=== PATIENT | male | born 1955 | race Caucasian/White ===

== ENCOUNTER 2023-05-21 14:32 | Inpatient (IN) | payer OTHER, MEDICARE ==
[~2023-05-21 14:32] MED LIST: Iopamidol-370 76% 500 ML MDV (1 ML CHARGE) ONE
[2023-05-21 14:55] LABS: #Basophils 0.1 thou/uL (0.0-0.2); #Eosinphils 0.1 thou/uL (0.0-0.7); #Monocytes 1.5 thou/uL (0.11-0.59); #Neutrophils 13.7 thou/uL (1.40-6.50); %Basophils 0.5 % (0.0-1.0); %Eosinophils 0.7 % (0.0-10.0); %Monocytes 8.3 % (0.0-10.0); %Neutrophils 77.4 % (42.0-75.0); Hematocrit 45.2 % (42.0-52.0); Hemoglobin 15.6 g/dL (14.0-18.0); Mean Corpuscular HGB CONC 34.5 g/dL (32.0-36.0); Mean Corpuscular Hemoglobin 32.4 pg (27.0-31.0); Mean Corpuscular Volume 93.8 fl (78.0-98.0); Mean Platelet Volume 9.5 fL (7.4-10.4); Platelet Count 194 10x3/uL (130-400); Red Blood Cell (RBC) Count 4.82 mill/uL (4.70-6.10); White Blood Cell (WBC) Count 17.7 10x3/uL (4.8-10.8)
[2023-05-21] MEDS ORDERED: Ketamine 50 MG/ML (10ML VIAL) ONE (15:06)
[2023-05-21 15:08] LABS: INR-International Normal Ratio 1.3; PTT 28.8 sec (22.9-36.1); Prothrombin Time 16.9 sec (12.0-14.7)
[2023-05-21 15:17] LABS: ALT (SGPT) 44 U/L (8-55); AST (SGOT) 65 U/L (5-34); Alkaline Phosphatase 72 U/L (40-110); Anion Gap 15 mmol/L (10-20); BUN (Urea Nitrogen) 22 mg/dL (8.4-25.7); Bilirubin, Total 1.5 mg/dL (0.2-1.2); Calc. Creatinine Clearance 0 mL/min (70-130); Calcium 9.1 mg/dL (7.8-10.44); Carbon Dioxide 23 mmol/L (23-31); Chloride 106 mmol/L (98-107); Estimated GFR 42; Globulin 3.6 g/dL (2.4-3.5); Glucose 182 mg/dL (80-115); Lipase 108 U/L (8-78); Potassium 3.7 mmol/L (3.5-5.1); Protein, Total 7.6 g/dL (5.8-8.1); Sodium 140 mmol/L (136-145)
[2023-05-21] MEDS ORDERED: Morphine 4 MG/ML VIAL ONE (16:33)
[2023-05-21] MEDS ORDERED: Ipratropium/Albuterol 3 ML NEB NEB PRN (17:03)
[2023-05-21] MEDS ORDERED: hydrALAZINE 20 MG/ML VIAL SLOW IVP PRN (17:03)
[2023-05-21] MEDS ORDERED: Ondansetron PF 4 MG/2 ML Vial IVP PRN (17:03)
[2023-05-21] MEDS ORDERED: traMADol HCl 50 MG TAB PO PRN (17:07)
[2023-05-21] MEDS ORDERED: HYDROmorphone 0.5 MG/0.5 ML SYRINGE ONE (17:33)
[2023-05-21] MEDS ORDERED: traMADol HCl 50 MG TAB PO SCH (18:00)
[2023-05-21] MEDS ORDERED: Acetaminophen 500 MG TAB PO SCH (18:00)
[2023-05-21] MEDS ORDERED: Dextrose 50% Abboject 50 ML SYRINGE SLOW IVP PRN ×2 (18:29→22:18)
[2023-05-21] MEDS ORDERED: Glucagon 1 MG/ML KIT IM PRN ×2 (18:29→22:18)
[2023-05-21] MEDS ORDERED: Dextrose 5% in Water 1,000 ML IV PRN ×2 (18:29→22:18)
[2023-05-21] MEDS ORDERED: hydrALAZINE 25 MG TAB PO PRN (18:30)
[2023-05-21] MEDS ORDERED: Acetaminophen 650 MG/20.3 ML UDCUP PO SCH (18:45)
[2023-05-21] MEDS ORDERED: Acetaminophen/Codeine 30-300mg Tablet PO SCH (18:45)
[2023-05-21 19:01] LABS: Bacteria/HPF None Seen HPF (None Seen); Bilirubin Negative (Negative); Blood, Urine 3+ (Negative); CAUTI Indications for Culture Dysuria,urgency,freq; Clarity Clear (Clear); Glucose, Urine (Dipstick) Greater than 1000 mg/dL (Negative); Ketone, Urine Negative (Negative); Leukocyte Negative Leu/uL (Negative); Nitrite Negative (Negative); Protein, Urine (Dipstick) 20 mg/dL (Neg-Trace); RBC/HPF 0-3 HPF (0-3); Squamous Epithelial 0-3 HPF (0-3); Urobilinogen Normal mg/dL (Less than 2); WBC/HPF 0-3 HPF (0-3)
[2023-05-21 19:02] LABS: Specific Gravity, Urine 1.053 (1.002-1.036)
[2023-05-21 19:04] LABS: Urine Culture Reflex No No
[2023-05-21 19:59] VITALS: BMI 38.8
[2023-05-21] MEDS: Gabapentin 100 MG CAP PO SCH (20:46)
[2023-05-21] MEDS: Famotidine/PF 20 mg/2ml Vial SLOW IVP SCH (20:46)
[2023-05-21] MEDS: Sodium Chloride 0.9% 1,000 ML IV SCH (20:46)
[2023-05-21] MEDS: Atorvastatin Calcium 40 MG TAB PO SCH (20:46)
[2023-05-21] MEDS: Morphine 2 MG/ML VIAL SLOW IVP PRN (20:47)
[2023-05-21] MEDS ORDERED: TETANUS, DIPHTHERIA TOX,ADULT (TDVAX) 0.5 ML VIAL IM ONE (22:18)
[2023-05-21] MEDS: Insulin Regular 300 UNITS/3 ML VIAL SC PRN (22:35)
[2023-05-22] MEDS: Acetaminophen/Codeine 30-300mg Tablet PO SCH ×2 (00:25→06:21)
[2023-05-22] MEDS: Acetaminophen 650 MG/20.3 ML UDCUP PO SCH ×2 (00:26→06:21)
[2023-05-22] MEDS: Sodium Chloride 0.9% 1,000 ML IV SCH ×3 (05:15→16:57)
[2023-05-22 05:53] LABS: #Basophils 0.1 thou/uL (0.0-0.2); #Monocytes 1.9 thou/uL (0.11-0.59); #Neutrophils 11.4 thou/uL (1.40-6.50); %Basophils 0.3 % (0.0-1.0); %Lymphocytes 8.3 % (21.0-51.0); %Monocytes 13.2 % (0.0-10.0); %Neutrophils 77.8 % (42.0-75.0); Hematocrit 40.7 % (42.0-52.0); Hemoglobin 13.9 g/dL (14.0-18.0); Mean Corpuscular HGB CONC 34.2 g/dL (32.0-36.0); Mean Corpuscular Hemoglobin 32.3 pg (27.0-31.0); Mean Corpuscular Volume 94.7 fl (78.0-98.0); Mean Platelet Volume 9.8 fL (7.4-10.4); Platelet Count 182 10x3/uL (130-400); RBC Distribution Width 12.5 % (11.5-14.5); White Blood Cell (WBC) Count 14.7 10x3/uL (4.8-10.8)
[2023-05-22 06:12] LABS: Anion Gap 15 mmol/L (10-20); BUN (Urea Nitrogen) 26 mg/dL (8.4-25.7); Calc. Creatinine Clearance 66 mL/min (70-130); Calcium 8.8 mg/dL (7.8-10.44); Carbon Dioxide 22 mmol/L (23-31); Chloride 103 mmol/L (98-107); Estimated GFR 40; Glucose 243 mg/dL (80-115); Sodium 136 mmol/L (136-145)
[2023-05-22] MEDS: Insulin Regular 300 UNITS/3 ML VIAL SC PRN ×4 (06:22→21:51)
[2023-05-22] MEDS: Gabapentin 100 MG CAP PO SCH ×3 (08:10→20:04)
[2023-05-22] MEDS: Morphine 2 MG/ML VIAL SLOW IVP PRN ×3 (08:10→21:51)
[2023-05-22] MEDS: Aspirin 325 mg Enteric Coated Tablet PO SCH (08:11)
[2023-05-22] MEDS: Montelukast Sodium 10 mg Tablet PO SCH (08:11)
[2023-05-22] MEDS: Acetaminophen/Codeine 30-300mg Tablet PO PRN ×4 (10:54→23:53)
[2023-05-22] MEDS ORDERED: Cyclobenzaprine 10 MG TAB PO PRN (12:38)
[2023-05-22] MEDS: Atorvastatin Calcium 40 MG TAB PO SCH (20:04)
[2023-05-22] MEDS: Famotidine/PF 20 mg/2ml Vial SLOW IVP SCH (20:06)
[2023-05-23] MEDS: Sodium Chloride 0.9% 1,000 ML IV SCH (02:56)
[2023-05-23] MEDS: Acetaminophen/Codeine 30-300mg Tablet PO PRN ×3 (04:44→20:15)
[2023-05-23] MEDS: Insulin Regular 300 UNITS/3 ML VIAL SC PRN ×3 (06:01→21:47)
[2023-05-23] MEDS ORDERED: CEFAZOLIN 2 GM in Sodium Chloride 0.9% 100 ML IVPB SCH (08:30)
[2023-05-23] MEDS: Montelukast Sodium 10 mg Tablet PO SCH (09:58)
[2023-05-23] MEDS: Aspirin 325 mg Enteric Coated Tablet PO SCH (09:58)
[2023-05-23] MEDS: Gabapentin 100 MG CAP PO SCH ×3 (09:59→20:14)
[2023-05-23] MEDS: Atorvastatin Calcium 40 MG TAB PO SCH (20:13)
[2023-05-23] MEDS: Famotidine/PF 20 mg/2ml Vial SLOW IVP SCH (20:15)
[2023-05-24] MEDS ORDERED: Lorazepam 2 MG/ML VIAL SLOW IVP SCH ×2 (00:45→07:30)
[2023-05-24 07:10] LABS: #Basophils 0.1 thou/uL (0.0-0.2); #Eosinphils 0.2 thou/uL (0.0-0.7); #Monocytes 1.3 thou/uL (0.11-0.59); #Neutrophils 9.1 thou/uL (1.40-6.50); %Basophils 0.5 % (0.0-1.0); %Eosinophils 1.5 % (0.0-10.0); %Lymphocytes 11.2 % (21.0-51.0); %Monocytes 10.8 % (0.0-10.0); %Neutrophils 75.4 % (42.0-75.0); Hematocrit 29.6 % (42.0-52.0); Hemoglobin 9.8 g/dL (14.0-18.0); Mean Corpuscular HGB CONC 33.1 g/dL (32.0-36.0); Mean Corpuscular Hemoglobin 32.6 pg (27.0-31.0); Mean Corpuscular Volume 98.3 fl (78.0-98.0); Mean Platelet Volume 9.7 fL (7.4-10.4); Platelet Count 123 10x3/uL (130-400); RBC Distribution Width 12.8 % (11.5-14.5); Red Blood Cell (RBC) Count 3.01 mill/uL (4.70-6.10); White Blood Cell (WBC) Count 12.1 10x3/uL (4.8-10.8)
[2023-05-24 07:34] LABS: Anion Gap 12 mmol/L (10-20); BUN (Urea Nitrogen) 49 mg/dL (8.4-25.7); Calc. Creatinine Clearance 34 mL/min (70-130); Calcium 7.8 mg/dL (7.8-10.44); Carbon Dioxide 22 mmol/L (23-31); Chloride 103 mmol/L (98-107); Estimated GFR 18; Glucose 202 mg/dL (80-115); Potassium 4.1 mmol/L (3.5-5.1); Sodium 133 mmol/L (136-145)
[2023-05-24] MEDS ORDERED: Thrombin 5000 UNITS/5 ML VIAL ONE ×2 (09:01→12:06)
[2023-05-24] MEDS ORDERED: EPINEPHrine 1 MG/ML AMP ONE (09:01)
[2023-05-24] MEDS ORDERED: Bupivacaine PF 0.5% 30 ML VIAL ONE (09:01)
[2023-05-24] MEDS ORDERED: CEFAZOLIN 2 GM VIAL ONE (09:36)
[2023-05-24] MEDS ORDERED: Sodium Chloride 0.9% 100 ML ONE (09:36)
[2023-05-24] MEDS ORDERED: Lidocaine 1% PF 5 ML VIAL ONE (09:50)
[2023-05-24] MEDS ORDERED: PHENYLEPHRINE-NS 100 MCG/ML 10 ML SYRINGE ONE (09:50)
[2023-05-24] MEDS ORDERED: Vecuronium 10 MG VIAL ONE (09:50)
[2023-05-24] MEDS ORDERED: Rocuronium Bromide 10 MG/ML (10ML VIAL) ONE (09:50)
[2023-05-24] MEDS ORDERED: PROPOFOL 200 MG/20 ML VIAL ONE (09:50)
[2023-05-24] MEDS ORDERED: Phenylephrine 10 MG/ML VIAL ONE (10:14)
[2023-05-24] MEDS: Aspirin 325 mg Enteric Coated Tablet PO SCH (11:15)
[2023-05-24] MEDS: Gabapentin 100 MG CAP PO SCH ×3 (11:15→21:45)
[2023-05-24] MEDS: Montelukast Sodium 10 mg Tablet PO SCH (11:16)
[2023-05-24] MEDS ORDERED: Rocuronium Bromide 50 MG/5 ML VIAL ONE (11:33)
[2023-05-24] MEDS ORDERED: Norepinephrine 4 MG/4 ML VIAL ONE (11:46)
[2023-05-24] MEDS ORDERED: Albumin 5% 500 ML ONE (12:08)
[2023-05-24] MEDS ORDERED: Aminocaproic Acid 5 GM in Sodium Chloride 0.9% 250 ML 250 ML IV SCH (14:30)
[2023-05-24] MEDS ORDERED: Propofol 1,000 MG/100 ML VIAL IV ONE (14:32)
[2023-05-24] MEDS ORDERED: NOREPINEPHRINE 8 MG/250 ML-D5W 250 ML ONE (14:34)
[2023-05-24] MEDS ORDERED: Midazolam HCl 2 mg/2 ml Vial IVP SCH (15:00)
[2023-05-24] MEDS ORDERED: FENTANYL 500 MCG/10 ML VIAL 2,000 MCG in Sodium Chloride 0.9% 60 ML IV PRN (15:26)
[2023-05-24 15:29] LABS: #Eosinphils 0.1 thou/uL (0.0-0.7); #Monocytes 0.9 thou/uL (0.11-0.59); #Neutrophils 7.5 thou/uL (1.40-6.50); %Basophils 0.4 % (0.0-1.0); %Eosinophils 1.2 % (0.0-10.0); %Lymphocytes 10.3 % (21.0-51.0); %Neutrophils 78.3 % (42.0-75.0); Hematocrit 28.4 % (42.0-52.0); Hemoglobin 9.3 g/dL (14.0-18.0); Mean Corpuscular HGB CONC 32.7 g/dL (32.0-36.0); Mean Corpuscular Hemoglobin 31.8 pg (27.0-31.0); Mean Corpuscular Volume 97.3 fl (78.0-98.0); Mean Platelet Volume 9.4 fL (7.4-10.4); Platelet Count 127 10x3/uL (130-400); RBC Distribution Width 13.3 % (11.5-14.5); Red Blood Cell (RBC) Count 2.92 mill/uL (4.70-6.10); White Blood Cell (WBC) Count 9.6 10x3/uL (4.8-10.8)
[2023-05-24] MEDS ORDERED: Dexmedetomidine In 0.9 % NaCl 100 ML IVPB SCH (15:30)
[2023-05-24] MEDS ORDERED: Sodium Chloride 0.9% 1,000 ML IV SCH (15:30)
[2023-05-24 15:43] LABS: INR-International Normal Ratio 1.4; PTT 33.1 sec (22.9-36.1); Prothrombin Time 17.5 sec (12.0-14.7)
[2023-05-24] MEDS ORDERED: Fentanyl CADD 100 ML ONE (15:57)
[2023-05-24] MEDS ORDERED: Fentanyl BOLUS 250 ML IVPB PRN (16:00)
[2023-05-24] MEDS: Fentanyl CADD 100 ML IV SCH (16:02)
[2023-05-24] MEDS ORDERED: Morphine 2 MG/ML VIAL SLOW IVP PRN (16:15)
[2023-05-24] MEDS ORDERED: Lorazepam 2 MG/ML VIAL SLOW IVP PRN (16:15)
[2023-05-24] MEDS ORDERED: DISCONTINUE PREVIOUS NARCOTIC PAIN MEDICATIONS AND BENZODIAZEPINES FS SCH (16:15)
[2023-05-24 17:20] LABS: #Basophils 0.1 thou/uL (0.0-0.2); #Eosinphils 0.1 thou/uL (0.0-0.7); #Neutrophils 7.9 thou/uL (1.40-6.50); %Basophils 0.5 % (0.0-1.0); %Eosinophils 0.9 % (0.0-10.0); %Lymphocytes 10.1 % (21.0-51.0); %Monocytes 10.2 % (0.0-10.0); %Neutrophils 77.5 % (42.0-75.0); Hematocrit 29.7 % (42.0-52.0); Hemoglobin 9.7 g/dL (14.0-18.0); Mean Corpuscular HGB CONC 32.7 g/dL (32.0-36.0); Mean Corpuscular Hemoglobin 31.7 pg (27.0-31.0); Mean Corpuscular Volume 97.1 fl (78.0-98.0); Mean Platelet Volume 9.7 fL (7.4-10.4); Platelet Count 133 10x3/uL (130-400); RBC Distribution Width 13.5 % (11.5-14.5); Red Blood Cell (RBC) Count 3.06 mill/uL (4.70-6.10); White Blood Cell (WBC) Count 10.2 10x3/uL (4.8-10.8)
[2023-05-24 17:38] LABS: Anion Gap 15 mmol/L (10-20); BUN (Urea Nitrogen) 46 mg/dL (8.4-25.7); Calc. Creatinine Clearance 40 mL/min (70-130); Calcium 7.9 mg/dL (7.8-10.44); Carbon Dioxide 16 mmol/L (23-31); Chloride 108 mmol/L (98-107); Estimated GFR 22; Glucose 202 mg/dL (80-115); Potassium 4.2 mmol/L (3.5-5.1); Sodium 135 mmol/L (136-145)
[2023-05-24] MEDS: CEFAZOLIN 2 GM in Sodium Chloride 0.9% 100 ML IVPB SCH (17:55)
[2023-05-24] MEDS: Dexmedetomidine 400 MCG, Admixture Fee 1 EACH in Sodium Chloride 0.9% 96 ML IVPB SCH (19:38)
[2023-05-24] MEDS: Atorvastatin Calcium 40 MG TAB PO SCH (21:45)
[2023-05-24] MEDS: Famotidine/PF 20 mg/2ml Vial SLOW IVP SCH (21:46)
[2023-05-24] MEDS ORDERED: NOREPINEPHRINE 8 MG/250 ML-D5W 250 ML IVPB SCH (22:15)
[2023-05-24] MEDS: Insulin Regular 300 UNITS/3 ML VIAL SC PRN (23:49)
[2023-05-25] MEDS: Sodium Chloride 0.9% 1,000 ML IV SCH ×2 (00:11→05:32)
[2023-05-25] MEDS: CEFAZOLIN 2 GM in Sodium Chloride 0.9% 100 ML IVPB SCH ×3 (02:41→17:35)
[2023-05-25 04:13] LABS: #Monocytes 0.9 thou/uL (0.11-0.59); #Neutrophils 5.9 thou/uL (1.40-6.50); %Basophils 0.3 % (0.0-1.0); %Eosinophils 0.3 % (0.0-10.0); %Lymphocytes 10.5 % (21.0-51.0); %Monocytes 11.1 % (0.0-10.0); %Neutrophils 77.3 % (42.0-75.0); Hemoglobin 7.9 g/dL (14.0-18.0); Mean Corpuscular HGB CONC 32.9 g/dL (32.0-36.0); Mean Corpuscular Hemoglobin 32.1 pg (27.0-31.0); Mean Corpuscular Volume 97.6 fl (78.0-98.0); Mean Platelet Volume 10.1 fL (7.4-10.4); RBC Distribution Width 13.3 % (11.5-14.5); Red Blood Cell (RBC) Count 2.46 mill/uL (4.70-6.10); White Blood Cell (WBC) Count 7.7 10x3/uL (4.8-10.8)
[2023-05-25 04:25] LABS: PTT 26.5 sec (22.9-36.1)
[2023-05-25 04:27] LABS: Platelet Count 114 10x3/uL (130-400)
[2023-05-25 04:35] LABS: Anion Gap 13 mmol/L (10-20); BUN (Urea Nitrogen) 47 mg/dL (8.4-25.7); Calc. Creatinine Clearance 49 mL/min (70-130); Calcium 7.7 mg/dL (7.8-10.44); Carbon Dioxide 20 mmol/L (23-31); Chloride 109 mmol/L (98-107); Estimated GFR 28; Glucose 188 mg/dL (80-115); Potassium 4.1 mmol/L (3.5-5.1); Sodium 138 mmol/L (136-145)
[2023-05-25 04:36] LABS: INR-International Normal Ratio 1.5; Prothrombin Time 18.8 sec (12.0-14.7)
[2023-05-25] MEDS: Acetaminophen 650 MG/20.3 ML UDCUP PO PRN (05:21)
[2023-05-25 07:28] LABS: Actual Bicarbonate (HCO3a) 22.4 mEq/L (22-28); Base Excess (BEa) -2.7 mEq/L (-2.0 to +3.0); CO2 Tension 40.1 mmHg (35.0-45.0); Calcium, Ionized (arterial) 1.07 mmol/L (1.12-1.30); Carboxyhemoglobin (COHb) 0.9 gm% (0.0-3.0); Hematocrit-ABG 24 % (42.0-52.0); Hemoglobin (Hb) 8.1 g/dL (14.0-18.0); O2 Tension (PaO2), arterial 93.5 mmHg (> 80.0); Potassium - ABG Lab 3.83 mmol/L (3.70-5.30); pH, Arterial 7.365 (7.35-7.45)
[2023-05-25 07:30] LABS: ALV-art Gradient 141.575 mmHg (0-20); Puncture Site RRA
[2023-05-25] MEDS: Gabapentin 100 MG CAP PO SCH ×3 (09:31→20:37)
[2023-05-25] MEDS: Montelukast Sodium 10 mg Tablet PO SCH (09:32)
[2023-05-25] MEDS: Metoprolol Tartrate 25 MG TAB PO SCH ×2 (09:32→20:37)
[2023-05-25] MEDS: Dexmedetomidine 400 MCG, Admixture Fee 1 EACH in Sodium Chloride 0.9% 96 ML IVPB SCH (09:54)
[2023-05-25] MEDS ORDERED: Fentanyl CADD 100 ML ONE (10:34)
[2023-05-25] MEDS: Fentanyl CADD 100 ML IV SCH (10:37)
[2023-05-25] MEDS: Lactated Ringer's 1,000 ML IV SCH ×2 (12:18→21:18)
[2023-05-25] MEDS ORDERED: DULoxetine 20 MG CAP PO SCH (13:00)
[2023-05-25] MEDS: Morphine 2 MG/ML VIAL SLOW IVP PRN (18:12)
[2023-05-25] MEDS: Atorvastatin Calcium 40 MG TAB PO SCH (20:37)
[2023-05-26] MEDS: CEFAZOLIN 2 GM in Sodium Chloride 0.9% 100 ML IVPB SCH ×3 (02:45→19:57)
[2023-05-26] MEDS: Morphine 2 MG/ML VIAL SLOW IVP PRN (05:31)
[2023-05-26] MEDS: Lactated Ringer's 1,000 ML IV SCH (06:21)
[2023-05-26] MEDS: Insulin Regular 300 UNITS/3 ML VIAL SC PRN (06:31)
[2023-05-26] MEDS ORDERED: Lactated Ringer's 1,000 ML IV SCH (07:35)
[2023-05-26] MEDS: Montelukast Sodium 10 mg Tablet PO SCH (09:43)
[2023-05-26] MEDS: Metoprolol Tartrate 25 MG TAB PO SCH ×2 (09:44→20:16)
[2023-05-26] MEDS: Gabapentin 100 MG CAP PO SCH ×3 (09:44→20:16)
[2023-05-26] MEDS: Lansoprazole 15 MG/5 ML (BATCHED)UDCUP PER TUBE SCH (09:57)
[2023-05-26 12:33] LABS: #Eosinphils 0.1 thou/uL (0.0-0.7); #Neutrophils 7.2 thou/uL (1.40-6.50); %Basophils 0.4 % (0.0-1.0); %Eosinophils 1.1 % (0.0-10.0); %Lymphocytes 10.8 % (21.0-51.0); %Monocytes 10.2 % (0.0-10.0); %Neutrophils 76.9 % (42.0-75.0); Hematocrit 24.7 % (42.0-52.0); Hemoglobin 8.2 g/dL (14.0-18.0); Mean Corpuscular HGB CONC 33.2 g/dL (32.0-36.0); Mean Corpuscular Hemoglobin 32.4 pg (27.0-31.0); Mean Corpuscular Volume 97.6 fl (78.0-98.0); Mean Platelet Volume 9.6 fL (7.4-10.4); Platelet Count 131 10x3/uL (130-400); RBC Distribution Width 13.2 % (11.5-14.5); Red Blood Cell (RBC) Count 2.53 mill/uL (4.70-6.10); White Blood Cell (WBC) Count 9.3 10x3/uL (4.8-10.8)
[2023-05-26 12:57] LABS: Anion Gap 12 mmol/L (10-20); BUN (Urea Nitrogen) 35 mg/dL (8.4-25.7); Calc. Creatinine Clearance 100 mL/min (70-130); Calcium 8.4 mg/dL (7.8-10.44); Carbon Dioxide 25 mmol/L (23-31); Chloride 106 mmol/L (98-107); Estimated GFR 64; Glucose 163 mg/dL (80-115); Potassium 3.4 mmol/L (3.5-5.1); Sodium 140 mmol/L (136-145)
[2023-05-26] MEDS ORDERED: Metoprolol Tartrate 25 MG TAB PO SCH (15:30)
[2023-05-26 16:17] LABS: Magnesium 1.9 mg/dL (1.6-2.6); Phosphorus 1.7 mg/dL (2.3-4.7)
[2023-05-26] MEDS ORDERED: Amiodarone 450 MG in Dextrose 5% in Water 250 ML IVPB SCH (17:15)
[2023-05-26] MEDS ORDERED: Amiodarone 150 MG, Admixture Fee 1 EACH in Dextrose 5% in Water 100 ML IVPB SCH (17:30)
[2023-05-26] MEDS ORDERED: Potassium Phosphate 30 MMOL in Sodium Chloride 0.9% 250 ML 250 ML IVPB SCH (17:30)
[2023-05-26] MEDS ORDERED: Furosemide 40 MG/4 ML VIAL SLOW IVP SCH (17:30)
[2023-05-26] MEDS: Amiodarone 450 MG, Admixture Fee 1 EACH in Dextrose 5% in Water 250 ML IVPB SCH (19:13)
[2023-05-26] MEDS: Acetaminophen 650 MG/20.3 ML UDCUP PO PRN (20:15)
[2023-05-26] MEDS: Atorvastatin Calcium 40 MG TAB PO SCH (20:16)
[2023-05-27] MEDS: CEFAZOLIN 2 GM in Sodium Chloride 0.9% 100 ML IVPB SCH ×3 (02:40→20:23)
[2023-05-27 04:07] LABS: #Basophils 0.1 thou/uL (0.0-0.2); #Eosinphils 0.4 thou/uL (0.0-0.7); #Monocytes 1.3 thou/uL (0.11-0.59); %Basophils 0.5 % (0.0-1.0); %Eosinophils 3.6 % (0.0-10.0); %Lymphocytes 14.2 % (21.0-51.0); %Monocytes 12.1 % (0.0-10.0); %Neutrophils 68.4 % (42.0-75.0); Hematocrit 26.4 % (42.0-52.0); Hemoglobin 8.9 g/dL (14.0-18.0); Mean Corpuscular HGB CONC 33.7 g/dL (32.0-36.0); Mean Corpuscular Hemoglobin 31.9 pg (27.0-31.0); Mean Platelet Volume 9.8 fL (7.4-10.4); Platelet Count 128 10x3/uL (130-400); RBC Distribution Width 13.1 % (11.5-14.5); Red Blood Cell (RBC) Count 2.79 mill/uL (4.70-6.10); White Blood Cell (WBC) Count 10.3 10x3/uL (4.8-10.8)
[2023-05-27] MEDS: Amiodarone 450 MG, Admixture Fee 1 EACH in Dextrose 5% in Water 250 ML IVPB SCH ×2 (04:08→18:31)
[2023-05-27 04:14] LABS: Mean Corpuscular Volume 94.6 fl (78.0-98.0)
[2023-05-27 04:41] LABS: Anion Gap 11 mmol/L (10-20); BUN (Urea Nitrogen) 38 mg/dL (8.4-25.7); Calc. Creatinine Clearance 103 mL/min (70-130); Calcium 8.1 mg/dL (7.8-10.44); Carbon Dioxide 26 mmol/L (23-31); Chloride 105 mmol/L (98-107); Estimated GFR 66; Glucose 174 mg/dL (80-115); Magnesium 1.9 mg/dL (1.6-2.6); Potassium 3.4 mmol/L (3.5-5.1); Sodium 139 mmol/L (136-145)
[2023-05-27] MEDS: Potassium Chloride 20 MEQ TAB PO SCH (09:14)
[2023-05-27] MEDS: Metoprolol Tartrate 25 MG TAB PO SCH ×2 (09:15→20:46)
[2023-05-27] MEDS: Montelukast Sodium 10 mg Tablet PO SCH (09:15)
[2023-05-27] MEDS: Gabapentin 100 MG CAP PO SCH ×3 (09:16→20:46)
[2023-05-27] MEDS: Lansoprazole 15 MG/5 ML (BATCHED)UDCUP PER TUBE SCH (10:42)
[2023-05-27] MEDS ORDERED: Spironolactone 25 MG TAB PO SCH (10:45)
[2023-05-27] MEDS ORDERED: Furosemide 20 MG/2 ML VIAL SLOW IVP SCH (10:45)
[2023-05-27] MEDS: Amiodarone 200 MG TAB PO SCH ×2 (14:20→20:47)
[2023-05-27] MEDS: Insulin Regular 300 UNITS/3 ML VIAL SC PRN (17:52)
[2023-05-27] MEDS: Atorvastatin Calcium 40 MG TAB PO SCH (20:47)
[2023-05-27 21:08] LABS: Anion Gap 12 mmol/L (10-20); BUN (Urea Nitrogen) 33 mg/dL (8.4-25.7); Calc. Creatinine Clearance 101 mL/min (70-130); Calcium 8.3 mg/dL (7.8-10.44); Carbon Dioxide 27 mmol/L (23-31); Chloride 101 mmol/L (98-107); Estimated GFR 64; Glucose 209 mg/dL (80-115); Magnesium 1.7 mg/dL (1.6-2.6); Phosphorus 1.6 mg/dL (2.3-4.7); Potassium 3.6 mmol/L (3.5-5.1); Sodium 136 mmol/L (136-145)
[2023-05-28] MEDS: CEFAZOLIN 2 GM in Sodium Chloride 0.9% 100 ML IVPB SCH ×2 (02:54→10:16)
[2023-05-28 03:55] LABS: #Eosinphils 0.2 thou/uL (0.0-0.7); #Monocytes 1.2 thou/uL (0.11-0.59); #Neutrophils 7.3 thou/uL (1.40-6.50); %Basophils 0.3 % (0.0-1.0); %Eosinophils 2.2 % (0.0-10.0); %Lymphocytes 12.6 % (21.0-51.0); %Monocytes 11.4 % (0.0-10.0); %Neutrophils 71.5 % (42.0-75.0); Hematocrit 24.8 % (42.0-52.0); Hemoglobin 8.5 g/dL (14.0-18.0); Mean Corpuscular HGB CONC 34.3 g/dL (32.0-36.0); Mean Corpuscular Hemoglobin 32.1 pg (27.0-31.0); Mean Corpuscular Volume 93.6 fl (78.0-98.0); Mean Platelet Volume 9.7 fL (7.4-10.4); Platelet Count 160 10x3/uL (130-400); RBC Distribution Width 12.8 % (11.5-14.5); Red Blood Cell (RBC) Count 2.65 mill/uL (4.70-6.10); White Blood Cell (WBC) Count 10.2 10x3/uL (4.8-10.8)
[2023-05-28 04:18] LABS: Anion Gap 13 mmol/L (10-20); BUN (Urea Nitrogen) 30 mg/dL (8.4-25.7); Calc. Creatinine Clearance 107 mL/min (70-130); Calcium 8.1 mg/dL (7.8-10.44); Carbon Dioxide 28 mmol/L (23-31); Chloride 99 mmol/L (98-107); Estimated GFR 68; Glucose 182 mg/dL (80-115); Magnesium 1.7 mg/dL (1.6-2.6); Potassium 3.5 mmol/L (3.5-5.1); Sodium 136 mmol/L (136-145)
[2023-05-28] MEDS: Insulin Regular 300 UNITS/3 ML VIAL SC PRN ×3 (07:20→16:22)
[2023-05-28] MEDS ORDERED: Magnesium 2 GM/50 ML(in water) 2 GM in Premix Bag 1 BAG IVPB SCH (07:45)
[2023-05-28] MEDS ORDERED: Potassium Phosphate 30 MMOL, Magnesium Sulfate 2 GM in Sodium Chloride 0.9% 250 ML 250 ML IVPB SCH (08:00)
[2023-05-28] MEDS: Lansoprazole 15 MG/5 ML (BATCHED)UDCUP PER TUBE SCH (08:30)
[2023-05-28] MEDS: Gabapentin 100 MG CAP PO SCH ×3 (08:31→20:50)
[2023-05-28] MEDS: Spironolactone 25 MG TAB PO SCH (08:31)
[2023-05-28] MEDS: Amiodarone 200 MG TAB PO SCH ×3 (08:31→20:50)
[2023-05-28] MEDS: Potassium Chloride 20 MEQ TAB PO SCH (08:31)
[2023-05-28] MEDS: Montelukast Sodium 10 mg Tablet PO SCH (08:31)
[2023-05-28] MEDS: Metoprolol Tartrate 25 MG TAB PO SCH ×2 (08:31→20:50)
[2023-05-28] MEDS: Amiodarone 450 MG, Admixture Fee 1 EACH in Dextrose 5% in Water 250 ML IVPB SCH (10:43)
[2023-05-28] MEDS ORDERED: Cyclobenzaprine 10 MG TAB PO PRN (15:41)
[2023-05-28] MEDS ORDERED: Furosemide 20 MG/2 ML VIAL SLOW IVP SCH (15:45)
[2023-05-28] MEDS ORDERED: Acetaminophen 325 MG TAB PO SCH (15:45)
[2023-05-28] MEDS: Acetaminophen 325 MG TAB PO SCH (17:34)
[2023-05-28] MEDS: Atorvastatin Calcium 40 MG TAB PO SCH (20:50)
[2023-05-29] MEDS: Acetaminophen 325 MG TAB PO SCH ×5 (00:26→23:55)
[2023-05-29] MEDS: Amiodarone 450 MG, Admixture Fee 1 EACH in Dextrose 5% in Water 250 ML IVPB SCH (02:22)
[2023-05-29 04:02] LABS: #Basophils 0.1 thou/uL (0.0-0.2); #Eosinphils 0.3 thou/uL (0.0-0.7); #Monocytes 1.2 thou/uL (0.11-0.59); #Neutrophils 7.1 thou/uL (1.40-6.50); %Basophils 0.5 % (0.0-1.0); %Eosinophils 2.9 % (0.0-10.0); %Lymphocytes 15.4 % (21.0-51.0); %Monocytes 11.6 % (0.0-10.0); %Neutrophils 67.3 % (42.0-75.0); Hematocrit 25.7 % (42.0-52.0); Hemoglobin 8.6 g/dL (14.0-18.0); Mean Corpuscular HGB CONC 33.5 g/dL (32.0-36.0); Mean Corpuscular Volume 95.5 fl (78.0-98.0); Mean Platelet Volume 9.7 fL (7.4-10.4); Platelet Count 176 10x3/uL (130-400); RBC Distribution Width 13.3 % (11.5-14.5); Red Blood Cell (RBC) Count 2.69 mill/uL (4.70-6.10); White Blood Cell (WBC) Count 10.5 10x3/uL (4.8-10.8)
[2023-05-29 04:34] LABS: Anion Gap 12 mmol/L (10-20); BUN (Urea Nitrogen) 26 mg/dL (8.4-25.7); Calc. Creatinine Clearance 106 mL/min (70-130); Calcium 8.2 mg/dL (7.8-10.44); Carbon Dioxide 26 mmol/L (23-31); Chloride 98 mmol/L (98-107); Estimated GFR 69; Glucose 184 mg/dL (80-115); Magnesium 1.9 mg/dL (1.6-2.6); Potassium 4.1 mmol/L (3.5-5.1); Sodium 132 mmol/L (136-145)
[2023-05-29 04:39] LABS: Phosphorus 2.9 mg/dL (2.3-4.7)
[2023-05-29] MEDS: Insulin Regular 300 UNITS/3 ML VIAL SC PRN ×3 (06:10→17:29)
[2023-05-29] MEDS: Lansoprazole 15 MG/5 ML (BATCHED)UDCUP PER TUBE SCH (08:21)
[2023-05-29] MEDS: Montelukast Sodium 10 mg Tablet PO SCH (08:21)
[2023-05-29] MEDS: Polyethylene Glycol 3350 17 GM Packet PO SCH (08:21)
[2023-05-29] MEDS: Gabapentin 100 MG CAP PO SCH ×3 (08:21→20:02)
[2023-05-29] MEDS: Metoprolol Tartrate 25 MG TAB PO SCH ×2 (08:21→20:02)
[2023-05-29] MEDS: Spironolactone 25 MG TAB PO SCH (08:21)
[2023-05-29] MEDS: Amiodarone 200 MG TAB PO SCH ×3 (08:21→20:03)
[2023-05-29] MEDS ORDERED: Senokot 8.6 MG TAB PO SCH (09:00)
[2023-05-29] MEDS ORDERED: Amiodarone 450 MG in Dextrose 5% in Water 250 ML IVPB SCH (09:00)
[2023-05-29] MEDS ORDERED: Metoprolol Tartrate 5 MG/5 ML VIAL IVP SCH (09:15)
[2023-05-29] MEDS: Morphine 2 MG/ML VIAL SLOW IVP PRN (11:26)
[2023-05-29] MEDS ORDERED: CEFAZOLIN 2 GM in Sodium Chloride 0.9% 100 ML IVPB SCH (12:30)
[2023-05-29] MEDS: Atorvastatin Calcium 40 MG TAB PO SCH (20:02)
[2023-05-29] MEDS: Acetaminophen/Codeine 30-300mg Tablet PO PRN (20:03)
[2023-05-30] MEDS: Metoprolol Tartrate 25 MG TAB PO SCH ×2 (05:31→20:56)
[2023-05-30] MEDS: Amiodarone 200 MG TAB PO SCH ×3 (05:31→20:56)
[2023-05-30] MEDS: Acetaminophen 325 MG TAB PO SCH ×4 (05:31→23:31)
[2023-05-30] MEDS: Gabapentin 100 MG CAP PO SCH ×3 (08:33→20:56)
[2023-05-30] MEDS: Lansoprazole 15 MG/5 ML (BATCHED)UDCUP PER TUBE SCH (08:34)
[2023-05-30] MEDS: Polyethylene Glycol 3350 17 GM Packet PO SCH (08:34)
[2023-05-30] MEDS: Montelukast Sodium 10 mg Tablet PO SCH (08:34)
[2023-05-30] MEDS: Spironolactone 25 MG TAB PO SCH (08:34)
[2023-05-30 09:54] LABS: #Basophils 0.1 thou/uL (0.0-0.2); #Eosinphils 0.4 thou/uL (0.0-0.7); #Monocytes 1.3 thou/uL (0.11-0.59); #Neutrophils 8.9 thou/uL (1.40-6.50); %Basophils 0.4 % (0.0-1.0); %Eosinophils 2.9 % (0.0-10.0); %Lymphocytes 11.6 % (21.0-51.0); %Monocytes 10.6 % (0.0-10.0); %Neutrophils 72.7 % (42.0-75.0); Hematocrit 26.9 % (42.0-52.0); Hemoglobin 9.2 g/dL (14.0-18.0); Mean Corpuscular HGB CONC 34.2 g/dL (32.0-36.0); Mean Corpuscular Hemoglobin 32.3 pg (27.0-31.0); Mean Corpuscular Volume 94.4 fl (78.0-98.0); Mean Platelet Volume 9.8 fL (7.4-10.4); Platelet Count 208 10x3/uL (130-400); RBC Distribution Width 13.3 % (11.5-14.5); Red Blood Cell (RBC) Count 2.85 mill/uL (4.70-6.10); White Blood Cell (WBC) Count 12.3 10x3/uL (4.8-10.8)
[2023-05-30 10:20] LABS: Anion Gap 10 mmol/L (10-20); BUN (Urea Nitrogen) 27 mg/dL (8.4-25.7); Calc. Creatinine Clearance 104 mL/min (70-130); Calcium 8.5 mg/dL (7.8-10.44); Carbon Dioxide 27 mmol/L (23-31); Chloride 98 mmol/L (98-107); Estimated GFR 67; Glucose 175 mg/dL (80-115); Magnesium 1.7 mg/dL (1.6-2.6); Phosphorus 2.9 mg/dL (2.3-4.7); Potassium 4.8 mmol/L (3.5-5.1); Sodium 130 mmol/L (136-145)
[2023-05-30] MEDS: Insulin Regular 300 UNITS/3 ML VIAL SC PRN (11:08)
[2023-05-30] MEDS ORDERED: fentaNYL PF 100 MCG/2 ML SYRINGE ONE (15:11)
[2023-05-30] MEDS ORDERED: Midazolam HCl 2 mg/2 ml Vial ONE (15:15)
[2023-05-30] MEDS ORDERED: PHENYLEPHRINE-NS 100 MCG/ML 10 ML SYRINGE ONE (15:35)
[2023-05-30] MEDS ORDERED: Lidocaine 1% PF 5 ML VIAL ONE (15:35)
[2023-05-30] MEDS ORDERED: PROPOFOL 200 MG/20 ML VIAL ONE (15:35)
[2023-05-30] MEDS: Atorvastatin Calcium 40 MG TAB PO SCH (20:56)
[2023-05-30] MEDS: CEFAZOLIN 2 GM in Sodium Chloride 0.9% 100 ML IVPB SCH (23:31)
[2023-05-31 04:06] LABS: #Basophils 0.1 thou/uL (0.0-0.2); #Eosinphils 0.3 thou/uL (0.0-0.7); #Monocytes 1.3 thou/uL (0.11-0.59); #Neutrophils 8.2 thou/uL (1.40-6.50); %Basophils 0.4 % (0.0-1.0); %Eosinophils 2.6 % (0.0-10.0); %Lymphocytes 12.1 % (21.0-51.0); %Monocytes 11.1 % (0.0-10.0); Hematocrit 26.5 % (42.0-52.0); Hemoglobin 8.6 g/dL (14.0-18.0); Mean Corpuscular HGB CONC 32.5 g/dL (32.0-36.0); Mean Platelet Volume 9.8 fL (7.4-10.4); Platelet Count 207 10x3/uL (130-400); RBC Distribution Width 13.5 % (11.5-14.5); Red Blood Cell (RBC) Count 2.69 mill/uL (4.70-6.10); White Blood Cell (WBC) Count 11.3 10x3/uL (4.8-10.8)
[2023-05-31 04:09] LABS: Mean Corpuscular Volume 98.5 fl (78.0-98.0)
[2023-05-31] MEDS: Acetaminophen 325 MG TAB PO SCH ×4 (05:04→22:44)
[2023-05-31] MEDS: Insulin Regular 300 UNITS/3 ML VIAL SC PRN ×2 (05:41→17:17)
[2023-05-31] MEDS: Spironolactone 25 MG TAB PO SCH (09:30)
[2023-05-31] MEDS: Metoprolol Tartrate 25 MG TAB PO SCH ×2 (09:30→20:20)
[2023-05-31] MEDS: Amiodarone 200 MG TAB PO SCH ×3 (09:30→20:20)
[2023-05-31] MEDS: Montelukast Sodium 10 mg Tablet PO SCH (09:30)
[2023-05-31] MEDS: Aspirin 325 MG TAB PO SCH (09:30)
[2023-05-31] MEDS: Polyethylene Glycol 3350 17 GM Packet PO SCH (09:30)
[2023-05-31] MEDS: Lansoprazole 15 MG/5 ML (BATCHED)UDCUP PER TUBE SCH (09:31)
[2023-05-31] MEDS: Gabapentin 100 MG CAP PO SCH ×3 (09:31→20:20)
[2023-05-31] MEDS: CEFAZOLIN 2 GM in Sodium Chloride 0.9% 100 ML IVPB SCH ×2 (09:33→15:23)
[2023-05-31] MEDS: Atorvastatin Calcium 40 MG TAB PO SCH (20:20)
[2023-06-01] MEDS: Acetaminophen 325 MG TAB PO SCH ×4 (05:03→23:27)
[2023-06-01 05:39] LABS: #Basophils 0.1 thou/uL (0.0-0.2); #Eosinphils 0.4 thou/uL (0.0-0.7); #Monocytes 1.2 thou/uL (0.11-0.59); #Neutrophils 8.9 thou/uL (1.40-6.50); %Basophils 0.5 % (0.0-1.0); %Eosinophils 3.5 % (0.0-10.0); %Monocytes 9.7 % (0.0-10.0); %Neutrophils 70.9 % (42.0-75.0); Hematocrit 26.7 % (42.0-52.0); Hemoglobin 8.9 g/dL (14.0-18.0); Mean Corpuscular HGB CONC 33.3 g/dL (32.0-36.0); Mean Corpuscular Hemoglobin 32.6 pg (27.0-31.0); Mean Corpuscular Volume 97.8 fl (78.0-98.0); Mean Platelet Volume 9.7 fL (7.4-10.4); Platelet Count 213 10x3/uL (130-400); RBC Distribution Width 13.6 % (11.5-14.5); Red Blood Cell (RBC) Count 2.73 mill/uL (4.70-6.10); White Blood Cell (WBC) Count 12.5 10x3/uL (4.8-10.8)
[2023-06-01 06:07] LABS: Anion Gap 8 mmol/L (10-20); BUN (Urea Nitrogen) 28 mg/dL (8.4-25.7); Calc. Creatinine Clearance 91 mL/min (70-130); Calcium 8.6 mg/dL (7.8-10.44); Carbon Dioxide 28 mmol/L (23-31); Chloride 100 mmol/L (98-107); Estimated GFR 58; Glucose 185 mg/dL (80-115); Potassium 4.7 mmol/L (3.5-5.1); Sodium 131 mmol/L (136-145)
[2023-06-01] MEDS: Acetaminophen/Codeine 30-300mg Tablet PO PRN ×2 (09:30→20:06)
[2023-06-01] MEDS: Gabapentin 100 MG CAP PO SCH ×3 (09:31→20:05)
[2023-06-01] MEDS: Aspirin 325 MG TAB PO SCH (09:31)
[2023-06-01] MEDS: Montelukast Sodium 10 mg Tablet PO SCH (09:31)
[2023-06-01] MEDS: Polyethylene Glycol 3350 17 GM Packet PO SCH (09:31)
[2023-06-01] MEDS: Spironolactone 25 MG TAB PO SCH (09:32)
[2023-06-01] MEDS: Metoprolol Tartrate 25 MG TAB PO SCH ×2 (09:32→20:06)
[2023-06-01] MEDS: Amiodarone 200 MG TAB PO SCH ×3 (09:32→20:06)
[2023-06-01] MEDS: Lansoprazole 15 MG/5 ML (BATCHED)UDCUP PER TUBE SCH (12:23)
[2023-06-01] MEDS: Insulin Regular 300 UNITS/3 ML VIAL SC PRN (12:24)
[2023-06-01] MEDS: Atorvastatin Calcium 40 MG TAB PO SCH (20:05)
[2023-06-02] MEDS: Acetaminophen 325 MG TAB PO SCH ×3 (05:31→18:24)
[2023-06-02 06:00] LABS: #Basophils 0.1 thou/uL (0.0-0.2); #Eosinphils 0.5 thou/uL (0.0-0.7); #Monocytes 1.3 thou/uL (0.11-0.59); #Neutrophils 9.5 thou/uL (1.40-6.50); %Basophils 0.5 % (0.0-1.0); %Eosinophils 3.8 % (0.0-10.0); %Lymphocytes 12.2 % (21.0-51.0); %Monocytes 9.5 % (0.0-10.0); %Neutrophils 71.3 % (42.0-75.0); Hematocrit 27.5 % (42.0-52.0); Hemoglobin 8.9 g/dL (14.0-18.0); Mean Corpuscular HGB CONC 32.4 g/dL (32.0-36.0); Mean Corpuscular Hemoglobin 31.9 pg (27.0-31.0); Mean Corpuscular Volume 98.6 fl (78.0-98.0); Mean Platelet Volume 9.8 fL (7.4-10.4); Platelet Count 236 10x3/uL (130-400); RBC Distribution Width 13.7 % (11.5-14.5); Red Blood Cell (RBC) Count 2.79 mill/uL (4.70-6.10); White Blood Cell (WBC) Count 13.3 10x3/uL (4.8-10.8)
[2023-06-02] MEDS: Insulin Regular 300 UNITS/3 ML VIAL SC PRN ×2 (06:26→12:35)
[2023-06-02] MEDS: Lansoprazole 15 MG/5 ML (BATCHED)UDCUP PER TUBE SCH (08:36)
[2023-06-02] MEDS: Aspirin 325 MG TAB PO SCH (08:36)
[2023-06-02] MEDS: Polyethylene Glycol 3350 17 GM Packet PO SCH (08:36)
[2023-06-02] MEDS: Gabapentin 100 MG CAP PO SCH ×3 (08:37→21:36)
[2023-06-02] MEDS: Amiodarone 200 MG TAB PO SCH ×2 (08:37→21:36)
[2023-06-02] MEDS: Montelukast Sodium 10 mg Tablet PO SCH (08:38)
[2023-06-02] MEDS: Spironolactone 25 MG TAB PO SCH (08:38)
[2023-06-02] MEDS: Metoprolol Tartrate 25 MG TAB PO SCH ×2 (08:38→21:35)
[2023-06-02 14:23] LABS: ALT (SGPT) 17 U/L (8-55); AST (SGOT) 36 U/L (5-34); Albumin 2.8 g/dL (3.4-4.8); Alkaline Phosphatase 82 U/L (40-110); Anion Gap 11 mmol/L (10-20); BUN (Urea Nitrogen) 30 mg/dL (8.4-25.7); Bilirubin, Total 1.2 mg/dL (0.2-1.2); Calc. Creatinine Clearance 94 mL/min (70-130); Calcium 8.9 mg/dL (7.8-10.44); Carbon Dioxide 25 mmol/L (23-31); Chloride 97 mmol/L (98-107); Estimated GFR 60; Globulin 4.3 g/dL (2.4-3.5); Glucose 216 mg/dL (80-115); Potassium 5.1 mmol/L (3.5-5.1); Protein, Total 7.1 g/dL (5.8-8.1); Sodium 128 mmol/L (136-145)
[2023-06-02] MEDS ORDERED: Sodium Chloride 1 GM TAB PO SCH (15:15)
[2023-06-02] MEDS ORDERED: Albumin 25% 25 GM/100 ML BOT IVPB SCH (15:30)
[2023-06-02] MEDS: Atorvastatin Calcium 40 MG TAB PO SCH (21:35)
[2023-06-03] MEDS: Acetaminophen 325 MG TAB PO SCH ×4 (00:45→17:53)
[2023-06-03] MEDS: Insulin Regular 300 UNITS/3 ML VIAL SC PRN ×3 (05:34→17:54)
[2023-06-03 06:35] LABS: #Basophils 0.1 thou/uL (0.0-0.2); #Eosinphils 0.6 thou/uL (0.0-0.7); #Monocytes 1.3 thou/uL (0.11-0.59); #Neutrophils 11.3 thou/uL (1.40-6.50); %Basophils 0.7 % (0.0-1.0); %Eosinophils 3.5 % (0.0-10.0); %Lymphocytes 13.3 % (21.0-51.0); %Neutrophils 71.8 % (42.0-75.0); Hematocrit 29.2 % (42.0-52.0); Hemoglobin 9.5 g/dL (14.0-18.0); Mean Corpuscular HGB CONC 32.5 g/dL (32.0-36.0); Mean Corpuscular Hemoglobin 31.9 pg (27.0-31.0); Mean Platelet Volume 9.6 fL (7.4-10.4); Platelet Count 329 10x3/uL (130-400); RBC Distribution Width 13.8 % (11.5-14.5); Red Blood Cell (RBC) Count 2.98 mill/uL (4.70-6.10); White Blood Cell (WBC) Count 15.7 10x3/uL (4.8-10.8)
[2023-06-03 06:59] LABS: ALT (SGPT) 16 U/L (8-55); AST (SGOT) 32 U/L (5-34); Alkaline Phosphatase 87 U/L (40-110); Anion Gap 10 mmol/L (10-20); BUN (Urea Nitrogen) 31 mg/dL (8.4-25.7); Bilirubin, Total 1.5 mg/dL (0.2-1.2); Calc. Creatinine Clearance 80 mL/min (70-130); Calcium 9.2 mg/dL (7.8-10.44); Carbon Dioxide 26 mmol/L (23-31); Chloride 99 mmol/L (98-107); Estimated GFR 49; Globulin 4.3 g/dL (2.4-3.5); Glucose 238 mg/dL (80-115); Potassium 5.1 mmol/L (3.5-5.1); Protein, Total 7.3 g/dL (5.8-8.1); Sodium 130 mmol/L (136-145)
[2023-06-03] MEDS: Aspirin 325 MG TAB PO SCH (08:24)
[2023-06-03] MEDS: Lansoprazole 15 MG/5 ML (BATCHED)UDCUP PER TUBE SCH (08:24)
[2023-06-03] MEDS: Spironolactone 25 MG TAB PO SCH (08:24)
[2023-06-03] MEDS: Gabapentin 100 MG CAP PO SCH ×3 (08:25→20:35)
[2023-06-03] MEDS: Polyethylene Glycol 3350 17 GM Packet PO SCH (08:26)
[2023-06-03] MEDS: Montelukast Sodium 10 mg Tablet PO SCH (08:26)
[2023-06-03] MEDS: Amiodarone 200 MG TAB PO SCH ×2 (08:26→20:34)
[2023-06-03] MEDS: Metoprolol Tartrate 25 MG TAB PO SCH ×2 (08:26→20:36)
[2023-06-03] MEDS: Atorvastatin Calcium 40 MG TAB PO SCH (20:34)
[2023-06-04] MEDS: Acetaminophen 325 MG TAB PO SCH ×5 (00:40→23:43)
[2023-06-04 05:29] LABS: #Basophils 0.1 thou/uL (0.0-0.2); #Eosinphils 0.6 thou/uL (0.0-0.7); #Monocytes 1.3 thou/uL (0.11-0.59); #Neutrophils 11.9 thou/uL (1.40-6.50); %Basophils 0.7 % (0.0-1.0); %Eosinophils 3.7 % (0.0-10.0); %Monocytes 8.1 % (0.0-10.0); %Neutrophils 72.1 % (42.0-75.0); Hematocrit 30.1 % (42.0-52.0); Mean Corpuscular HGB CONC 33.2 g/dL (32.0-36.0); Mean Corpuscular Hemoglobin 32.2 pg (27.0-31.0); Mean Corpuscular Volume 96.8 fl (78.0-98.0); Mean Platelet Volume 9.5 fL (7.4-10.4); Platelet Count 344 10x3/uL (130-400); Red Blood Cell (RBC) Count 3.11 mill/uL (4.70-6.10); White Blood Cell (WBC) Count 16.5 10x3/uL (4.8-10.8)
[2023-06-04 05:53] LABS: ALT (SGPT) 19 U/L (8-55); AST (SGOT) 34 U/L (5-34); Albumin 3.2 g/dL (3.4-4.8); Alkaline Phosphatase 92 U/L (40-110); Anion Gap 13 mmol/L (10-20); BUN (Urea Nitrogen) 34 mg/dL (8.4-25.7); Bilirubin, Total 1.4 mg/dL (0.2-1.2); Calc. Creatinine Clearance 83 mL/min (70-130); Calcium 9.2 mg/dL (7.8-10.44); Carbon Dioxide 24 mmol/L (23-31); Chloride 97 mmol/L (98-107); Estimated GFR 52; Globulin 4.3 g/dL (2.4-3.5); Glucose 203 mg/dL (80-115); Phosphorus 4.2 mg/dL (2.3-4.7); Potassium 5.2 mmol/L (3.5-5.1); Protein, Total 7.5 g/dL (5.8-8.1); Sodium 129 mmol/L (136-145)
[2023-06-04] MEDS: Insulin Regular 300 UNITS/3 ML VIAL SC PRN ×3 (06:14→17:11)
[2023-06-04] MEDS: Lansoprazole 15 MG/5 ML (BATCHED)UDCUP PER TUBE SCH (08:44)
[2023-06-04] MEDS: Polyethylene Glycol 3350 17 GM Packet PO SCH (08:44)
[2023-06-04] MEDS: Gabapentin 100 MG CAP PO SCH ×3 (08:45→21:15)
[2023-06-04] MEDS: Montelukast Sodium 10 mg Tablet PO SCH (08:45)
[2023-06-04] MEDS: Spironolactone 25 MG TAB PO SCH (08:45)
[2023-06-04] MEDS: Aspirin 325 MG TAB PO SCH (08:45)
[2023-06-04] MEDS: Amiodarone 200 MG TAB PO SCH ×2 (08:45→21:16)
[2023-06-04] MEDS: Senokot 8.6 MG TAB PO SCH (08:45)
[2023-06-04] MEDS: Metoprolol Tartrate 25 MG TAB PO SCH ×2 (08:45→21:15)
[2023-06-04 10:15] LABS: Bacteria/HPF None Seen HPF (None Seen); Bilirubin Negative (Negative); Blood, Urine 3+ (Negative); CAUTI Indications for Culture Spinal Cord Injury; Clarity Clear (Clear); Glucose, Urine (Dipstick) Normal (Negative); Ketone, Urine Negative (Negative); Leukocyte Negative Leu/uL (Negative); Nitrite Negative (Negative); Protein, Urine (Dipstick) 10 mg/dL (Neg-Trace); RBC/HPF 21-50 HPF (0-3); Specific Gravity, Urine 1.011 (1.002-1.036); Squamous Epithelial None Seen HPF (0-3); WBC/HPF 0-3 HPF (0-3); pH, Urine 6.5 (5.0-9.0)
[2023-06-04 10:16] LABS: Urine Culture Reflex No No
[2023-06-04 17:30] LABS: Bilirubin Negative (Negative); Blood, Urine 3+ (Negative); CAUTI Indications for Culture Acute Hematuria; Clarity Clear (Clear); Glucose, Urine (Dipstick) Normal (Negative); Ketone, Urine Negative (Negative); Leukocyte 75 Leu/uL (Negative); Nitrite Negative (Negative); Protein, Urine (Dipstick) 30 mg/dL (Neg-Trace); RBC/HPF Greater than 50 HPF (0-3); Squamous Epithelial 0-3 HPF (0-3); WBC/HPF 21-50 HPF (0-3); pH, Urine 5.5 (5.0-9.0)
[2023-06-04 17:31] LABS: Bacteria/HPF 1+ HPF (None Seen)
[2023-06-04 17:32] LABS: Urine Culture Reflex Yes Yes
[2023-06-04 18:33] LABS: #Basophils 0.1 thou/uL (0.0-0.2); #Eosinphils 0.5 thou/uL (0.0-0.7); #Monocytes 1.5 thou/uL (0.11-0.59); %Basophils 0.6 % (0.0-1.0); %Eosinophils 2.9 % (0.0-10.0); %Lymphocytes 9.4 % (21.0-51.0); %Monocytes 8.3 % (0.0-10.0); %Neutrophils 76.7 % (42.0-75.0); Hematocrit 34.6 % (42.0-52.0); Hemoglobin 11.2 g/dL (14.0-18.0); Mean Corpuscular HGB CONC 32.4 g/dL (32.0-36.0); Mean Corpuscular Hemoglobin 32.1 pg (27.0-31.0); Mean Corpuscular Volume 99.1 fl (78.0-98.0); Mean Platelet Volume 9.6 fL (7.4-10.4); Platelet Count 359 10x3/uL (130-400); Red Blood Cell (RBC) Count 3.49 mill/uL (4.70-6.10); White Blood Cell (WBC) Count 18.3 10x3/uL (4.8-10.8)
[2023-06-04 18:46] LABS: ALT (SGPT) 21 U/L (8-55); AST (SGOT) 39 U/L (5-34); Albumin 3.4 g/dL (3.4-4.8); Alkaline Phosphatase 112 U/L (40-110); Anion Gap 17 mmol/L (10-20); BUN (Urea Nitrogen) 38 mg/dL (8.4-25.7); Bilirubin, Total 1.4 mg/dL (0.2-1.2); Calc. Creatinine Clearance 79 mL/min (70-130); Calcium 9.7 mg/dL (7.8-10.44); Carbon Dioxide 20 mmol/L (23-31); Chloride 96 mmol/L (98-107); Estimated GFR 48; Globulin 4.9 g/dL (2.4-3.5); Glucose 191 mg/dL (80-115); Potassium 5.8 mmol/L (3.5-5.1); Protein, Total 8.3 g/dL (5.8-8.1); Sodium 127 mmol/L (136-145)
[2023-06-04] MEDS ORDERED: Insulin Glargine 30 UNITS/0.3 ML VIAL SC SCH (21:00)
[2023-06-04] MEDS: Atorvastatin Calcium 40 MG TAB PO SCH (21:16)
[2023-06-05] MEDS: Acetaminophen 325 MG TAB PO SCH ×3 (05:51→17:15)
[2023-06-05] MEDS ORDERED: Bisacodyl 10 MG SUPP PR SCH (07:45)
[2023-06-05] MEDS: Aspirin 325 MG TAB PO SCH (08:46)
[2023-06-05] MEDS: Polyethylene Glycol 3350 17 GM Packet PO SCH (08:46)
[2023-06-05] MEDS: Lansoprazole 15 MG/5 ML (BATCHED)UDCUP PER TUBE SCH (08:46)
[2023-06-05] MEDS: Montelukast Sodium 10 mg Tablet PO SCH (08:46)
[2023-06-05] MEDS: Spironolactone 25 MG TAB PO SCH (08:46)
[2023-06-05] MEDS: Amiodarone 200 MG TAB PO SCH ×2 (08:46→20:46)
[2023-06-05] MEDS: Gabapentin 100 MG CAP PO SCH ×3 (08:46→20:45)
[2023-06-05] MEDS: Senokot 8.6 MG TAB PO SCH (08:46)
[2023-06-05] MEDS: Metoprolol Tartrate 25 MG TAB PO SCH ×2 (08:46→20:46)
[2023-06-05] MEDS: Bisacodyl 10 MG SUPP PR SCH (10:51)
[2023-06-05] MEDS: Insulin Regular 300 UNITS/3 ML VIAL SC PRN ×2 (12:32→17:16)
[2023-06-05 16:45] LABS: ALT (SGPT) 19 U/L (8-55); AST (SGOT) 37 U/L (5-34); Albumin 3.2 g/dL (3.4-4.8); Alkaline Phosphatase 110 U/L (40-110); Anion Gap 14 mmol/L (10-20); BUN (Urea Nitrogen) 42 mg/dL (8.4-25.7); Bilirubin, Total 1.3 mg/dL (0.2-1.2); Calc. Creatinine Clearance 83 mL/min (70-130); Calcium 9.2 mg/dL (7.8-10.44); Carbon Dioxide 20 mmol/L (23-31); Chloride 98 mmol/L (98-107); Estimated GFR 52; Globulin 4.7 g/dL (2.4-3.5); Glucose 212 mg/dL (80-115); Potassium 5.2 mmol/L (3.5-5.1); Protein, Total 7.9 g/dL (5.8-8.1); Sodium 127 mmol/L (136-145)
[2023-06-05] MEDS: Atorvastatin Calcium 40 MG TAB PO SCH (20:46)
[2023-06-05] MEDS: Insulin Glargine 30 UNITS/0.3 ML VIAL SC SCH (20:46)
[2023-06-05] MEDS ORDERED: Sodium Chloride 0.9% 1,000 ML IV SCH (23:55)
[2023-06-06] MEDS: Acetaminophen 325 MG TAB PO SCH ×4 (00:55→17:21)
[2023-06-06] MEDS ORDERED: Lidocaine 1% (PF) 30 ML VIAL ONE (06:20)
[2023-06-06] MEDS ORDERED: Lidocaine 1% PF 5 ML VIAL ONE (06:20)
[2023-06-06 10:25] LABS: Anion Gap 17 mmol/L (10-20); BUN (Urea Nitrogen) 40 mg/dL (8.4-25.7); Calc. Creatinine Clearance 79 mL/min (70-130); Calcium 8.6 mg/dL (7.8-10.44); Carbon Dioxide 20 mmol/L (23-31); Chloride 98 mmol/L (98-107); Estimated GFR 48; Glucose 189 mg/dL (80-115); Magnesium 1.9 mg/dL (1.6-2.6); Phosphorus 4.1 mg/dL (2.3-4.7); Potassium 4.8 mmol/L (3.5-5.1); Sodium 130 mmol/L (136-145)
[2023-06-06 10:39] LABS: #Basophils 0.1 thou/uL (0.0-0.2); #Eosinphils 0.4 thou/uL (0.0-0.7); #Monocytes 1.1 thou/uL (0.11-0.59); #Neutrophils 8.6 thou/uL (1.40-6.50); %Basophils 0.5 % (0.0-1.0); %Eosinophils 3.5 % (0.0-10.0); %Lymphocytes 12.4 % (21.0-51.0); %Monocytes 8.9 % (0.0-10.0); %Neutrophils 72.7 % (42.0-75.0); Hemoglobin 10.9 g/dL (14.0-18.0); Mean Corpuscular HGB CONC 32.1 g/dL (32.0-36.0); Mean Corpuscular Hemoglobin 31.7 pg (27.0-31.0); Mean Corpuscular Volume 98.8 fl (78.0-98.0); Mean Platelet Volume 9.8 fL (7.4-10.4); Platelet Count 333 10x3/uL (130-400); RBC Distribution Width 14.2 % (11.5-14.5); Red Blood Cell (RBC) Count 3.44 mill/uL (4.70-6.10); White Blood Cell (WBC) Count 11.8 10x3/uL (4.8-10.8)
[2023-06-06] MEDS: Acetaminophen/Codeine 30-300mg Tablet PO PRN (10:41)
[2023-06-06] MEDS: Gabapentin 100 MG CAP PO SCH ×3 (10:46→20:58)
[2023-06-06] MEDS: Amiodarone 200 MG TAB PO SCH ×2 (10:47→20:58)
[2023-06-06] MEDS: Aspirin 325 MG TAB PO SCH (10:48)
[2023-06-06] MEDS: Metoprolol Tartrate 25 MG TAB PO SCH ×2 (10:48→20:57)
[2023-06-06] MEDS: Montelukast Sodium 10 mg Tablet PO SCH (10:48)
[2023-06-06] MEDS: Lansoprazole 15 MG/5 ML (BATCHED)UDCUP PER TUBE SCH (10:55)
[2023-06-06] MEDS: Bisacodyl 10 MG SUPP PR SCH (11:18)
[2023-06-06] MEDS: Senokot 8.6 MG TAB PO SCH (11:18)
[2023-06-06] MEDS: Polyethylene Glycol 3350 17 GM Packet PO SCH (11:18)
[2023-06-06] MEDS ORDERED: Iopamidol 370 76% 100 ML VIAL ONE (11:25)
[2023-06-06] MEDS: Insulin Regular 300 UNITS/3 ML VIAL SC PRN ×2 (12:14→17:21)
[2023-06-06] MEDS: Atorvastatin Calcium 40 MG TAB PO SCH (20:58)
[2023-06-06] MEDS: Insulin Glargine 30 UNITS/0.3 ML VIAL SC SCH (22:08)
[2023-06-07] MEDS: Acetaminophen 325 MG TAB PO SCH ×5 (01:06→23:09)
[2023-06-07 05:59] LABS: #Basophils 0.1 thou/uL (0.0-0.2); #Eosinphils 0.5 thou/uL (0.0-0.7); #Monocytes 0.9 thou/uL (0.11-0.59); #Neutrophils 6.8 thou/uL (1.40-6.50); %Basophils 0.7 % (0.0-1.0); %Lymphocytes 15.4 % (21.0-51.0); %Monocytes 8.8 % (0.0-10.0); %Neutrophils 68.7 % (42.0-75.0); Hematocrit 29.9 % (42.0-52.0); Hemoglobin 9.7 g/dL (14.0-18.0); Mean Corpuscular HGB CONC 32.4 g/dL (32.0-36.0); Mean Corpuscular Hemoglobin 31.9 pg (27.0-31.0); Mean Corpuscular Volume 98.4 fl (78.0-98.0); Mean Platelet Volume 9.3 fL (7.4-10.4); Platelet Count 365 10x3/uL (130-400); RBC Distribution Width 14.5 % (11.5-14.5); Red Blood Cell (RBC) Count 3.04 mill/uL (4.70-6.10); White Blood Cell (WBC) Count 9.9 10x3/uL (4.8-10.8)
[2023-06-07 06:22] LABS: Anion Gap 12 mmol/L (10-20); BUN (Urea Nitrogen) 41 mg/dL (8.4-25.7); Calc. Creatinine Clearance 83 mL/min (70-130); Calcium 8.8 mg/dL (7.8-10.44); Carbon Dioxide 25 mmol/L (23-31); Chloride 100 mmol/L (98-107); Estimated GFR 51; Glucose 195 mg/dL (80-115); Phosphorus 3.7 mg/dL (2.3-4.7); Sodium 133 mmol/L (136-145)
[2023-06-07] MEDS: Polyethylene Glycol 3350 17 GM Packet PO SCH (09:11)
[2023-06-07] MEDS: Senokot 8.6 MG TAB PO SCH (09:11)
[2023-06-07] MEDS: Bisacodyl 10 MG SUPP PR SCH (09:12)
[2023-06-07] MEDS: Gabapentin 100 MG CAP PO SCH ×3 (09:12→21:28)
[2023-06-07] MEDS: Amiodarone 200 MG TAB PO SCH ×2 (09:12→21:28)
[2023-06-07] MEDS: Montelukast Sodium 10 mg Tablet PO SCH (09:12)
[2023-06-07] MEDS: Aspirin 325 MG TAB PO SCH (09:12)
[2023-06-07] MEDS: Metoprolol Tartrate 25 MG TAB PO SCH ×2 (09:13→21:28)
[2023-06-07] MEDS: Insulin Regular 300 UNITS/3 ML VIAL SC PRN (13:10)
[2023-06-07] MEDS ORDERED: HumaLOG 300 UNITS/3 ML VIAL SC PRN (21:11)
[2023-06-07] MEDS: Atorvastatin Calcium 40 MG TAB PO SCH (21:28)
[2023-06-07] MEDS: Famotidine 20 MG TAB PO SCH (21:28)
[2023-06-07] MEDS: Insulin Glargine 30 UNITS/0.3 ML VIAL SC SCH (21:28)
[2023-06-08] MEDS: Acetaminophen 325 MG TAB PO SCH ×2 (06:37→13:14)
[2023-06-08] MEDS: Gabapentin 100 MG CAP PO SCH (09:17)
[2023-06-08] MEDS: Montelukast Sodium 10 mg Tablet PO SCH (09:18)
[2023-06-08] MEDS: Aspirin 325 MG TAB PO SCH (09:18)
[2023-06-08] MEDS: Metoprolol Tartrate 25 MG TAB PO SCH (09:18)
[2023-06-08] MEDS: Amiodarone 200 MG TAB PO SCH (09:18)
[2023-06-08] MEDS: Famotidine 20 MG TAB PO SCH (09:18)
[2023-06-08 11:27] VITALS: BP 131/77; TEMP 97.1
[2023-06-08] MEDS: Bisacodyl 10 MG SUPP PR SCH (11:34)
[2023-06-08] MEDS: Senokot 8.6 MG TAB PO SCH (11:35)
[2023-06-08] MEDS: Polyethylene Glycol 3350 17 GM Packet PO SCH (11:35)
== END 2023-06-08 15:12 | DRG 28 ==
LOC: ERS 14:32 → SURG A 18:14 → CCU 05-24 14:00 → SURG B 05-26 14:36 → IMCU/EMU 05-26 18:47 → SJJU 05-31 16:38
PROVIDERS: ADMIT Surgery; ATTEND Surgery
PROC: 0RH104Z Insertion of Internal Fixation Device into Cervical Vertebral Joint, Open Approach (ICD-10-PCS; 2023-05-24)
PROC: 01N80ZZ Release Thoracic Nerve, Open Approach (ICD-10-PCS; 2023-05-24)
PROC: 0RC Upper Joints, Extirpation (ICD-10-PCS; 2023-05-24)
PROC: 30233R1 Transfusion of Nonautologous Platelets into Peripheral Vein, Percutaneous Approach (ICD-10-PCS; 2023-05-24)
PROC: 30233N1 Transfusion of Nonautologous Red Blood Cells into Peripheral Vein, Percutaneous Approach (ICD-10-PCS; 2023-05-24)
PROC: 6A550Z2 Pheresis of Platelets, Single (ICD-10-PCS; 2023-05-24)
PROC: 30233J1 Transfusion of Nonautologous Serum Albumin into Peripheral Vein, Percutaneous Approach (ICD-10-PCS; 2023-05-24)
PROC: 3E033XZ Introduction of Vasopressor into Peripheral Vein, Percutaneous Approach (ICD-10-PCS; 2023-05-24)
PROC: 5A1935Z Respiratory Ventilation, Less than 24 Consecutive Hours (ICD-10-PCS; 2023-05-24)
PROC: 0BH17EZ Insertion of Endotracheal Airway into Trachea, Via Natural or Artificial Opening (ICD-10-PCS; 2023-05-24)
PROC: 00CU0ZZ Extirpation of Matter from Spinal Canal, Open Approach (ICD-10-PCS; 2023-05-24)
PROC: 00NX0ZZ Release Thoracic Spinal Cord, Open Approach (ICD-10-PCS; 2023-05-24)
PROC: 0PS304Z Reposition Cervical Vertebra with Internal Fixation Device, Open Approach (ICD-10-PCS; 2023-05-24)
PROC: 4A133R1 Monitoring of Arterial Saturation, Peripheral, Percutaneous Approach (ICD-10-PCS; 2023-05-25)
PROC: 0QSG04Z Reposition Right Tibia with Internal Fixation Device, Open Approach (ICD-10-PCS; principal; 2023-05-30)
PROC: 0QSJ04Z Reposition Right Fibula with Internal Fixation Device, Open Approach (ICD-10-PCS; 2023-05-30)
PROC: 06H03DZ Insertion of Intraluminal Device into Inferior Vena Cava, Percutaneous Approach (ICD-10-PCS; 2023-06-06)
DX: S24.103A Unspecified injury at T7-T10 level of thoracic spinal cord, initial encounter (principal); I77.74 Dissection of vertebral artery; J96.00 Acute respiratory failure, unspecified whether with hypoxia or hypercapnia; K56.7 Ileus, unspecified; S12.590A Other displaced fracture of sixth cervical vertebra, initial encounter for closed fracture; S22.43XA Multiple fractures of ribs, bilateral, initial encounter for closed fracture; S32.018A Other fracture of first lumbar vertebra, initial encounter for closed fracture; S22.20XA Unspecified fracture of sternum, initial encounter for closed fracture; N17.9 Acute kidney failure, unspecified; E87.20 Acidosis, unspecified; D68.9 Coagulation defect, unspecified; D62 Acute posthemorrhagic anemia; G82.20 Paraplegia, unspecified; E87.1 Hypo-osmolality and hyponatremia; I82.442 Acute embolism and thrombosis of left tibial vein; S12.400A Unspecified displaced fracture of fifth cervical vertebra, initial encounter for closed fracture; S24.153A Other incomplete lesion at T7-T10 level of thoracic spinal cord, initial encounter; S82.891A Other fracture of right lower leg, initial encounter for closed fracture; S82.491A Other fracture of shaft of right fibula, initial encounter for closed fracture; M45.9 Ankylosing spondylitis of unspecified sites in spine; M06.9 Rheumatoid arthritis, unspecified; N18.9 Chronic kidney disease, unspecified; Z96.653 Presence of artificial knee joint, bilateral; I48.0 Paroxysmal atrial fibrillation; R33.9 Retention of urine, unspecified; E11.65 Type 2 diabetes mellitus with hyperglycemia; I12.9 Hypertensive chronic kidney disease with stage 1 through stage 4 chronic kidney disease, or unspecified chronic kidney disease; D69.6 Thrombocytopenia, unspecified; I45.10 Unspecified right bundle-branch block; E87.6 Hypokalemia; S82.841A Displaced bimalleolar fracture of right lower leg, initial encounter for closed fracture; K59.00 Constipation, unspecified; E87.5 Hyperkalemia; Z90.49 Acquired absence of other specified parts of digestive tract; Z79.01 Long term (current) use of anticoagulants; Z98.890 Other specified postprocedural states; Z87.891 Personal history of nicotine dependence; V59.88XA Occupant (driver) (passenger) of pick-up truck or van injured in other specified transport accidents, initial encounter; Y92.89 Other specified places as the place of occurrence of the external cause
CPT/HCPCS: 27788; 36415; 36416; 36430; 36600; 37191; 70450; 70498; 71045; 71260; 72125; 72146; 72148; 74018; 74177; 80048; 80053; 81001; 82533; 82805; 83690; 83735; 83880; 84100; 84484; 85025; 85384; 85610; 85730; 86850; 86900; 86901; 87077; 87086; 87186; 90714; 93005; 93010; 93306; 93970; 94002; 94003; 94640; 96374; 96375; 99156; C1713; C1769; C1874; C1880; C1894; G0390; J0171; J0282; J1170; J1815; J1940; J2001; J2060; J2250; J2270; J2272; J2370; J2704; J3010; J3475; J3490; J7050; J7070; J7120; J7620; L0174; P9016; P9035; P9045; P9047; Q9967; S0017; S0020; S0028